=== PATIENT | female | born 1990 | race African-American/Black ===

== ENCOUNTER 2016-04-26 19:30 | Emergency (ER) | payer MEDICAID ==
[~2016-04-26] VITALS: Ht 162.6 cm; Wt 60.0 kg
[~2016-04-26 19:30] MED LIST: METR-1 PO
[2016-04-26 19:32] VITALS: BP 132/82; PULSE 102; RESP 16; TEMP 98.6; O2SAT 100
[2016-04-26] MEDS ORDERED: SODIUM CHLOR 0.9% 1000 ML INJ 1,000 ML IV ONE (21:04)
--- NOTE | 2016-04-26 21:09 | PD ---
HPI Chief Complaint: Headache Time Seen by Provider: 20:57 Travel History International Travel<30 days: No Contact w/Intl Traveler<30days: No Traveled to known affect area: No History of Present Illness HPI 26-year-old female presents for evaluation of a headache. Symptoms started 3 days ago. She describes it as a right-sided pulsating headache, constant, unrelieved with Tylenol. Denies nausea, vomiting, blurred vision, cough, congestion, stiff neck, rash, recent travel, fevers or chills. Denies any significant past medical history. She reports that she's been under a lot of stress lately in regards to recently being released from [facility], having to move. She has no other complaints. [facility] Past Medical History Anemia: Yes Diminished Hearing: No Hypertension: Yes ( INDUCED- 1ST ) Immunizations Current: Yes ?: Not LMP: 04/22/16 : 2 Para: 1 Miscarriage: 1 Social History Alcohol Use: No Tobacco Use: No Substance Use: No Allergies-Medications (Allergen,Severity, Reaction): Coded Allergies: No Known Allergies (Verified , 04/26/16) Reported Meds & Prescriptions Reported Meds & Active Scripts Active Review of Systems Except as stated in HPI: all other systems reviewed are Neg Physical Exam Narrative GENERAL: Well-developed well-nourished female in no acute distress. Texting on her cell phone. SKIN: Warm and dry. HEAD: Atraumatic. Normocephalic. EYES: Pupils equal and round. No scleral icterus. No injection or drainage. ENT: No nasal bleeding or discharge. Mucous membranes pink and moist. NECK: Trachea midline. No JVD. CARDIOVASCULAR: Regular rate and rhythm. No murmur appreciated. RESPIRATORY: No accessory muscle use. Clear to auscultation. Breath sounds equal bilaterally. GASTROINTESTINAL: Abdomen soft, non-tender, nondistended. MUSCULOSKELETAL: No obvious deformities. No edema. NEUROLOGICAL: Awake and alert. No obvious cranial nerve deficits. Motor grossly within normal limits. Normal speech. PSYCHIATRIC: Appropriate mood and affect; insight and judgment normal. Data Data Last Documented VS Vital Signs Date Time Temp Pulse Resp B/P Pulse Ox O2 Delivery O2 Flow Rate FiO2 04/26/16 19:32 98.6 102 16 132/82 100 Room Air Orders Ed Urine Pregnancytest Poc (04/26/16 19:45) Iv Access Insert/Monitor (04/26/16 21:04) Ketorolac Inj (Toradol Inj) (04/26/16 21:15) Diphenhydramine Inj (Benadryl Inj) (04/26/16 21:15) Metoclopramide Inj (Reglan Inj) (04/26/16 21:15) Sodium Chlor 0.9% 1000 Ml Inj (Ns 1000 M (04/26/16 21:04) MDM Medical Decision Making Medical Screen Exam Complete: Yes Emergency Medical Condition: Yes Medical Record Reviewed: Yes Interpretation(s) Urine test negative Differential Diagnosis Migraine, preeclampsia, tension headache, cluster headache, mass, intracranial hemorrhage, pseudotumor cerebri, sinusitis Narrative Course 26-year-old female with 3 days of right-sided throbbing headache. She has a normal neurologic examination. She reports that she's been under a lot of social stress lately and this is likely contributing to her headache. I suspect a migraine as the likely etiology. Plan is to treat the patient symptomatically. 2220: Upon reexamination her headache is resolved. She is stable for discharge. Diagnosis Primary Impression: Headache Qualified Code: R51 - Acute nonintractable headache, unspecified headache type Additional Instructions: Follow-up closely with primary care physician. Return for any emergent medical conditions. Med/Other Pt SpecificInfo: No Change to Meds Disposition: 01 DISCHARGE HOME Condition: Stable Manuel Cain Apr 26, 2016 21:09
[2016-04-26] MEDS ORDERED: diphenhydrAMINE HCL 50 MG/ML VIAL IVP ONE (21:15)
[2016-04-26] MEDS ORDERED: METOCLOPRAMIDE HCL 10 MG/2 ML VIAL IVP ONE (21:15)
[2016-04-26] MEDS ORDERED: KETOROLAC TROMETHAMINE 30 MG/ML (IVP) VIAL IVP ONE (21:15)
== END 2016-04-26 22:31 | disposition home or self-care (01) ==
LOC: NEPB 19:30
DX: R51 Headache (principal); Z86.2 Personal history of diseases of the blood and blood-forming organs and certain disorders involving the immune mechanism
CPT/HCPCS: 84703; 96374; 96375; 99283; J1200; J1885; J2765; J7030

== ENCOUNTER 2017-01-09 18:42 | Emergency (ER) | payer MEDICAID ==
[~2017-01-09] VITALS: Ht 162.6 cm; Wt 59.0 kg
[2017-01-09 18:43] VITALS: BP 120/71; PULSE 94; RESP 18; TEMP 98.8; O2SAT 100
[2017-01-09] MEDS ORDERED: AUGM875T3 PO (19:24)
[2017-01-09] MEDS ORDERED: IBUP800T23 PO (19:24)
--- NOTE | 2017-01-09 19:25 | PD ---
HPI Chief Complaint: ENT Complaint Time Seen by Provider: 19:19 Travel History International Travel<30 days: No Contact w/Intl Traveler<30days: No Traveled to known affect area: No History of Present Illness HPI Patient is a 26-year-old female presenting to emergency department evaluation of a sore throat. Patient states it hurts to swallow. She has been taking Tylenol with no relief of her symptoms. She denies any documented fevers but has felt chilled. She denies any wheezing or shortness of breath, dysphasia, nasal congestion. PFSH Past Medical History Anemia: Yes Diminished Hearing: No Hypertension: Yes ( INDUCED- 1ST ) Immunizations Current: Yes Thyroid Disease: Yes (per patient at 17 was told her thyroid was enlarged, never took meds for it) ?: Not : 2 Para: 1 Miscarriage: 1 Past Surgical History Surgical History: No Previous Surgery Social History Alcohol Use: No Tobacco Use: No Substance Use: No Allergies-Medications (Allergen,Severity, Reaction): Coded Allergies: No Known Allergies (Verified , 01/09/17) Reported Meds & Prescriptions Reported Meds & Active Scripts Active No Active Prescriptions or Reported Medications Review of Systems Except as stated in HPI: all other systems reviewed are Neg General / Constitutional: Positive: Chills, No: Fever HENT: Positive: Sore Throat, No: Headaches, Congestion Respiratory: No: Shortness of Breath Gastrointestinal: No: Nausea, Abdominal Pain Physical Exam Narrative GENERAL: Well-developed, well-nourished, alert female. Resting comfortably in no acute distress. SKIN: Warm and dry. HEAD: Normocephalic. EYES: No scleral icterus. No injection or drainage. ENT: Mucosa pink and moist. Posterior pharynx with mild erythema, exudates noted to the right tonsil, mild 1+ tonsillar hypertrophy. No uvular edema. No uvular, palatal, or tonsillar deviation. Airway patent. Nasal turbinates appear normal without nasal blood, purulent drainage or septal hematoma. NECK: Supple, trachea midline. No JVD or lymphadenopathy. CARDIOVASCULAR: Regular rate and rhythm without murmurs, gallops, or rubs. RESPIRATORY: Breath sounds equal bilaterally. No accessory muscle use. GASTROINTESTINAL: Abdomen soft, non-tender, nondistended. MUSCULOSKELETAL: No cyanosis, or edema. BACK: Nontender without obvious deformity. No CVA tenderness. Data Data Last Documented VS Vital Signs Date Time Temp Pulse Resp B/P (MAP) Pulse Ox O2 Delivery O2 Flow Rate FiO2 01/09/17 18:43 98.8 94 18 120/71 (87) 100 Room Air Orders Orders Dexamethasone Inj (Decadron Inj) (01/09/17 19:30) MDM Medical Decision Making Medical Screen Exam Complete: Yes Emergency Medical Condition: Yes Interpretation(s) Vital Signs Date Time Temp Pulse Resp B/P (MAP) Pulse Ox O2 Delivery O2 Flow Rate FiO2 01/09/17 18:43 98.8 94 18 120/71 (87) 100 Room Air Differential Diagnosis URI versus strep pharyngitis versus postnasal drip versus other Narrative Course Patient presented for evaluation of a sore throat for the last 4 days. Throat is mildly erythematous with exudate noted on the right tonsil. Airway is patent and her vital signs are stable. Patient will be treated with antibiotics at this time. She'll be given an injection of dexamethasone now. She is encouraged to complete full course of antibiotics as prescribed. She was encouraged to follow-up with her primary doctor. She is encouraged to take ibuprofen as needed and as directed for pain. She was advised to return to emergency department for any new or worsening symptoms. Patient verbalized understanding of instructions. Patient stable for discharge. Diagnosis Primary Impression: Exudative pharyngitis Referrals: Primary Care Physician 3 days Patient Instructions: General Instructions, Pharyngitis (ED) Additional Instructions: Complete full course of antibiotics as prescribed, even if you begin to feel better Follow-up with your primary doctor Take ibuprofen as needed and as directed for pain Return to emergency department for any new or worsening symptoms Med/Other Pt SpecificInfo: Prescription(s) given Scripts Ibuprofen (Ibuprofen) 800 Mg Tab 800 MG PO Q6HR Y for PAIN, #40 TAB 0 Refills Prov: Allyn Liu 01/09/17 Amoxicillin-Clavulanate (Augmentin) 875-125 Mg Tab 1 TAB PO BID for Infection, #20 TAB 0 Refills Prov: Allyn Liu 01/09/17 Disposition: 01 DISCHARGE HOME Condition: Stable Allyn Liu Jan 09, 2017 19:25
[2017-01-09] MEDS ORDERED: DEXAMETHASONE SOD PHOS 20 MG/5 ML VIAL IM ONE (19:30)
== END 2017-01-09 20:26 | disposition home or self-care (01) ==
LOC: NEPK 18:42
DX: J02.9 Acute pharyngitis, unspecified (principal); D64.9 Anemia, unspecified
CPT/HCPCS: 96372; 99284; J1100